=== PATIENT | female | born 1990 | race Caucasian/White ===

== ENCOUNTER 2023-06-21 08:22 | Emergency (ER) | payer MEDICAID, SELFPAY ==
--- NOTE | 2023-06-21 08:31 | XR_ITS ---
WS: [id number] Exam: XR foot LT min 3V* [id number] Date/Time of Exam: 06/21/2023 8:39 AM Reason For Exam: pain Findings: The foot was examined in multiple views and reveals no fractures or displacements of bone. No bony a nomalies are noted. The bony elements are in adequate alignment. The joint spaces are smooth and eq uidistant. IMPRESSION: Negative LEFT foot.
[2023-06-21 08:34] VITALS: BP 119/74; PULSE 97; RESP 16; TEMP 37.1; O2SAT 98; BMI 18.8
[2023-06-21 08:48] VITALS: BP 137/77; PULSE 99; O2SAT 98
--- NOTE | 2023-06-21 08:53 | ED_ITS ---
HPI - Extremity Problem General: Chief complaint: Extremity Injury, Lower Stated complaint: left foot pain Time Seen by Provider: 06/21/23 08:28 Source: patient Mode of arrival: ambulatory History of Present Illness: 33-year-old female presents to the [facility] ency room with complaint of left foot pain she was running and accidentally kicked a couch while racing to help her dog. Has pain with bruising over the dorsum of the foot at the base of the left third and fourth toes. No other injury. MD Complaint: extremity pain Onset (ago): hour(s) Pain Consistency: constant Location: left (foot) Quality: sharp Radiation: distal Relieving factors: nothing Exacerbating factors: range of motion and palpation Associated symptoms: Deny arthralgias, chest pain, fever(s), myalgias, rash or short of breath Review of Systems Const: Denies: fever(s) Card: Denies: chest pain Resp: Denies: dyspnea GI: Denies: abdominal pain : Denies: dysuria, urinary frequency or urinary urgency Musc: Reports: extremity pain (L foot); Denies: neck pain or back pain Skin/Breast: Denies: rash Physical Exam Const: COMMON NORMALS: no acute distress GENERAL APPEARANCE: cooperative and comfortable ORIENTATION/CONSCIOUSNESS: Yes awake, Yes oriented to person, Yes oriented to place and Yes oriented to time HENMT: COMMON NORMALS: normocephalic, atraumatic and hearing grossly normal bilaterally HEAD & SCALP: normocephalic and atraumatic Extremity: COMMON NORMALS: capillary refill normal, no clubbing, cyanosis or edema, no calf tenderness and no pedal edema OTHER: Ecchymosis of the dorsum of the foot overlying the left third and fourth MTP joints no deformity sensation normal good capillary refill distally. Neuro: SENSORIUM/ORIENTATION: Yes oriented to person, Yes oriented to place and Yes oriented to time Skin: COMMON NORMALS: no rashes or lesions noted GENERAL SKIN EXAM: no rashes or lesions noted Course Vital Signs: Vital signs: Vital Signs Temperature 98.7 F 06/21/23 08:34 Pulse Rate 99 06/21/23 08:48 Respiratory Rate 16 06/21/23 08:34 Blood Pressure 137/77 06/21/23 08:48 Pulse Oximetry 98 06/21/23 08:48 Oxygen Delivery Me thod Room Air 06/21/23 08:48 MDM - Extremity (Nontraumatic) Medical Decision Making X-rays negative for acute fracture. Ice rest. Can use diclofenac as needed. Medical Records I reviewed the patient's medical records. Lab Data I reviewed the patient's lab results. All radiology interpretation(s) finalized by discharge Discharge Plan Discharge Patient Disposition: Home Clinical Impression: Acute foot pain Condition: Stable Prescriptions: New diclofenac sodium 75 mg tablet,delayed release (DR/EC) 75 mg PO Q12H PRN (Reason: pain) Qty: 20 0RF Discharge Orders: Discharge ED (Routine); Ordered 06/21/23 Ordered By: Jason Burciaga Discharge Diet: Usual diet Discharge Activity: Increase activity as tolerated Patient Instructions: Opioid Safety, Pain Management Activity Restrictions/Additional Instructions: Thank you for choosing [facility] for your healthcare needs today. Please realize this is an emergency room and that we are providing you with a medical screening exam and this may not be complete and all inclusive of all the testing and or work up that you may need to determine your ailment or severity of your illness. It is very important that you follow up as instructed or that you return to the Emergency Department should you have concerns or if your condition changes or worsens in any way. You were seen today for foot pain. He has some bruising on the dorsum of the right foot there is no acute fractures on the x-ray. Use prescription medications given today follow-up as needed Coding Level of Care Code ED Drafting Layout Man for Dina Alfonso
== END 2023-06-21 09:17 | disposition home or self-care (01) ==
PROVIDERS: Emergency Provider Family Medicine
DX: M79.672 Pain in left foot (principal)
CPT/HCPCS: 73630; 99283

== ENCOUNTER 2023-11-09 05:20 | Outpatient (CLI) | payer MEDICAID, SELFPAY ==
--- NOTE | 2023-11-09 | USR_ITS ---
PROCEDURE INFORMATION: Exam: US After First Trimester, Transabdominal Exam date and time: 11/09/2023 1:19 PM Age: 33 years old Clinical indication: Screening exam; Routine US, uterus; Additional info: Normal in multigravida TECHNIQUE: Imaging protocol: Real-time transabdominal obstetrical ultrasound of the maternal pelvis and a second or third trimester with image documentation. COMPARISON: No relevant prior studies available. FINDINGS: There is a single living intrauterine in the cephalic presentation. The cervix is closed. Cervical length is 4.8 cm. The placenta is anterior and fundal without previa or abruption. heart rate is 144 bpm. measurements: BPD 4.63 cm-20 weeks 0 days HC 17.47 cm-20 weeks 0 days AC 14.38 cm-19 weeks 5 days FL 3.18 cm 19 weeks 6 days AUA 19 weeks 6 days JOHNY 03/29/2024 Estimated weight 315 g (11 oz). No abnormalities are noted on anatomic survey. US/US OB >= 14 weeks fetus [id number] IMPRESSION: 1. Single living intrauterine as above.
== END 2023-11-09 05:21 | disposition home or self-care (01) ==
LOC: RADOUTREAD 11-10 05:22
PROVIDERS: Visit Provider Family Medicine
DX: Z34.80 Encounter for supervision of other normal pregnancy, unspecified trimester (principal)

== ENCOUNTER 2024-04-01 19:13 | Inpatient (IN) | payer MEDICAID, SELFPAY ==
[2024-04-01] VITALS (35 sets, daily range): BP systolic 93–128; BP diastolic 51–77; PULSE 49–104; RESP 16–18; TEMP 36.8–37; BMI 25.7
[2024-04-01 09:58] LABS: Basophils # 0.1 10^3/uL (0.0-0.1); Basophils % 0.8 %; Eosinophils # 0.1 10^3/uL (0.0-0.8); Eosinophils % 1.1 %; Hematocrit 36.5 % (36-47); Lymphocytes # 2.4 10^3/uL (0.8-4.8); Lymphocytes % 22.6 %; Mean Corpuscular HGB Conc 33.4 g/dL (30-55); Mean Corpuscular Hemoglobin 30.9 pg (27-33); Mean Corpuscular Volume 92.4 fl (85-98); Monocytes # 0.7 10^3/uL (0.2-0.9); Monocytes % 6.6 %; Neutrophils # 7.14 10^3/uL (1.8-7.7); Neutrophils % 68.4 %; Nucleated Red Blood Cells % 0 %; Platelet Count 250 10^3/cmm (157-399); Red Blood Count 3.95 10^6/uL (3.85-5.65); Red Cell Distribution Width 13.1 % (12.1-15.1); White Blood Count 10.42 10^3/uL (3.29-11.43)
[2024-04-01 10:08] LABS: Amphetamines Screen Urine Negative (Negative); Barbiturates Screen Urine Negative (Negative); Benzodiazepines Screen Urine Negative (Negative); Cocaine Screen Urine Negative (Negative); Opiate Screen Urine Negative (Negative); PCP Screen Urine Negative (Negative); THC Screen Urine Positive (Negative)
[2024-04-01] MEDS: lactated ringers 1,000 ML 999 ML IV (17:12)
--- NOTE | 2024-04-01 18:15 | P.ANES_ITS ---
Anesthesia Procedures Procedure/Date: 04/01/24 Epidural: Time Out Performed: Yes Consents Signed: Procedure Consent Consent: requested by attending/covering physician and from patient Lumbar Level: L3-L4 Epidural position: sitting Epidural procedure: sterile prep of area, 1% lidocaine to numb the area, 18 g needle, negative for paresthesia p assed, neg for paresthesia, test dose given, 1.5% xylocaine 1:200k epi, 0.2% Ropivacaine bolus ml, placed PCEA, no systemic response, sterile dressing applied, L.U.D. no apparent complications and 0.2% Ropiavacaine @ mls/hr Additional Comments: Ropivacaine 0.2% at 10 mL/h
--- NOTE | 2024-04-01 18:26 | P.ANESASSM_ITS ---
Pre-Anesthetic Assessment Height/Weight: Height 5 ft 7 in Weight 164 lb Pulse Resp BP O2 Del Method 82 16 126/61 Room Air 04/01/24 18:23 04/01/24 08:49 04/01/24 18:23 04/01/24 07:08 Preop Diagnosis: In active labor Was Beta Chen taken within 24 hours: N/A Was Clonidine taken within 24 hours: N/A Social Tobacco and No alcohol Exam alert, oriented x 3, clear to auscultation bilaterally and regular rate & rhythm Airway Submandibular: within normal limits Cervical ROM: within normal limits Mallampati: Class II Dentition: full Anesthetic Plan ASA status: 2 Anesthesia: Regional (specify below) Other: G5, P4 in active labor requesting epidural Last cervical check patient was dilated to 5 cm Patient denies any issues during , only takes vitamin Labs reviewed and acceptable for neuraxial anesthesia Patient is noncompliant, has been stepping outside to smoke and refusing monitoring Plan for routine epidural placement Medications/Allergies Home Medications Medication Instructions Recorded Confirmed Last Taken Type diclofenac sodium 75 mg 75 mg PO Q12H PRN pain #20 tabs 06/21/23 Unknown Rx tablet,delayed release Allergies Allergy/AdvReac Type Severity Reaction Status Date / Time No Known Allergies Allergy Verified 06/21/23 08:38 Current Medications Generic Name Dose Route Start Last Admin Trade Name Freq PRN Reason Stop Dose Admin Lactated Ringer's 1,000 mls @ 999 mls/hr 04/01/24 17:01 04/01/24 17:12 Lactated Ringers IV 999 mls/hr .Q1H1M PRN Administration See label comments PFSH Anesthesia Female Reproductive History : 5 Data Anesthesia 04/01/24 09:49 Short CBC 04/01/24 Range/Units 09:49 WBC 10.42 (3.29-11.43) 10^3/uL Hgb 12.20 (11.27-16.99) g/dL Hct 36.5 (36-47) % MCV 92.4 (85-98) fl Plt Count 250 (157-399) 10^3/cmm Neut % (Auto) 68.4 % Neut # (Auto) 7.14 (1.8-7.7) 10^3/uL Blood Bank 04/01/24 09:49 Blood Type A Negative Rho(D) Type Rh negative Antibody Screen Negative Cardiac Studies: 2 No Data to Display
[2024-04-01] MEDS: oxytocin 30 UNIT/500 ML BAG IV (19:29)
[2024-04-01] MEDS: calcium carbonate 500 mg Chew Tablet 1000 MG PO (19:32)
[2024-04-01] MEDS: ROPivacaine syringe 100 MG/50 ML SYRINGE 10 MG EPIDURAL ×2 (19:46→21:59)
--- NOTE | 2024-04-01 22:05 | P.HPUD_ITS ---
Labor & Delivery H&P Update Date of Procedure: April 01, 2024 Date H&P Performed: 03/29/24 Changes to previous documentation: 34-year-old 6 para 4-0-1-4 at 40 weeks and 3 days patient presenting to the hospital with presumed spontaneous rupture membranes Admission Diagnosis: Spontaneous rupture membranes Preop diagnosis: In active labor Planned procedure: Vaginal delivery Other information: The patient is a 34-year-old female who presents to the hospital with spontaneous rupture membranes. Her is been relatively unremarkable. She has smoked tobacco and marijuana during her . Her blood type is a positive and she did decline a RhoGAM shot at 28 weeks. She has also been very specific about interventions, management, and medications that she would like during her labor process. We have had long discussions regarding the possibility of emergency situations where there is not time to adequately consent. I have also let her know that we will do our best to honor her wishes. She also understands that there are some times and will not be able to sergio quately consent her in emergency situations even if we are going against her expectations of labor. Related Problem List Diagnoses (1) 40 weeks gestation of : I anticipate routine labor and delivery. The patient has very specific desires regarding the medication she is okay with and not. We will do her best to let her drive things that she would like to have done. A&P Assessment and plan (1) 40 weeks gestation of : Status: Resolved
--- NOTE | 2024-04-01 23:25 | PM.DELIVERY ---
Delivery Note: Date of delivery: April 01, 2024 Pre-delivery diagnoses: 34-year-old 6 para 4-0-1-4 with an estimated gestational age of 40 weeks and 3 days who presented to the hospital with rupture membranes Post-delivery diagnoses: Status post spontaneous vaginal delivery Procedure: Spontaneous vaginal delivery Delivering Physician: Jamie Saha Estimated blood loss (mL): 75 Pre-Delivery Course: The patient presented to the hospital after having a gush of fluid and persistent trickling afterwards. In the hospital she had equivocal nitrazine. Due to her gestational age we recommended that she stay for presumed rupture membranes given her history. A forebag was noted and an amniotomy was performed she ultimately decided to have an epidural. Her labor was augmented with Pitocin. She progressed to complete without difficulty. Delivery: DELIVERY: The patient progressed to complete without difficulty. She delivered a female with a weight of 6 pounds 10 ounces with Apgars of 8, 9. The baby was delivered from the AJAY position and placed on the mother's abdomen. The cord was then clamped and cut after the cord stopped pulsating. There was no nuchal cord. There was no meconium. The placenta and 3 vessel cord were delivered intact shortly thereafter. The perineum and vaginal vault were carefully examined. No significant lacerations were noted. Both the mother and the baby were in stable condition. Post-Delivery Status: Good A&P Assessment and plan (1) Spontaneous vaginal delivery: I anticipate routine care. The patient is having some difficulty with childcare. As such she is debating whether she will stay tonight. We are going to see if we can modify hospital policy to allow her 10-year-old patient to stay with her so she can stay tonight in the hospital. Otherwise she may choose to go home AMA because of her childcare situation. (2) Marijuana use during : The patient was notified that DFS will be consulted due to her positive marijuana drug screen. Coding Level of Care Code Acute Code for Chg Fwd Diagnoses Spontaneous vaginal delivery O80 Marijuana use during O99.320; F12.90
[2024-04-02] VITALS (10 sets, daily range): BP systolic 89–117; BP diastolic 49–73; PULSE 54–115; RESP 14–18; TEMP 36.6–36.7; O2SAT 96–98
--- NOTE | 2024-04-02 01:19 | PC.NURSE ---
patient requested for IV to be removed at this time. Kameron SORIA educated patient on indications for IV and educated on risks with not having an IV after delivery. Patient states she would like RN to call physician for IV removal. Dr. Saha called at 0117 per patient request, physician states that IV may be removed. [phone] Jose Daniel Leggett RN in room for IV removal, patient states IV can be left in.
[2024-04-02] MEDS: HYDROcodone-acetaminophen 5-325 mg Tablet PO (07:28)
--- NOTE | 2024-04-02 08:09 | PM.OBGYDC ---
Discharge Providers [employer] Date of Admission: 04/01/24 19:13 Date of Discharge: 04/05/24 Attending Provider at Admission: Jamie Saha MD Attending Provider at Discharge: Jamie Saha MD Diagnoses at Discharge Discharge Diagnosis (1) 40 weeks gestation of : Status: Resolved Reason for Visit Reason for Visit: poss SROM Hospital Course Hospital Course The patient presented to the hospital after having spontaneous rupture membranes. After laboring for a while an epidural was placed. Her labor was augmented with Pitocin. She progressed to complete and had an unremarkable delivery of a healthy appearing infant. Her course was also relatively unremarkable. Her bleeding was within normal limits. Her pain was well-controlled. There were no concerns. Information Peripartum Data: Infant Delivery Method: Vaginal Physical Exam Narrative: The patient is alert. She appears comfortable. Her heart has a regular rate and rhythm with no murmurs appreciated. Lungs are clear to auscultation bilaterally. Her fundus is firm and below the umbilicus. Urinary Catheter Management: Chairez: Cath Placed During This Visit: yes, but has since been removed by the nurse Reason for Continuing Indwelling Catheter: Decision to DC Catheter Urinary Catheter Date of Insertion: 04/01/24 Urinary Catheter Time of Insertion: 19:45 Date Urinary Catheter Removed: 04/01/24 Time Urinary Catheter Discontinued: 22:50 Discharge Data Studies Completed and Pending Pending at discharge Category Date Time Status Complete Crossmatch Routine Lab 04/01/24 09:49 Results Maternal Hemorrhage Scrn Routine Lab 04/02/24 06:32 Ordered Hemagram Timed Lab 04/02/24 11:31 Uncollected Rho D Immune Globulin Routine Lab 04/01/24 09:49 Results Type and Screen Routine Lab 04/01/24 09:49 Results Laboratory Results WBC 10.42 10^3/uL (3.29-11.43) 04/01/24 09:49 RBC 3.95 10^6/uL (3.85-5.65) 04/01/24 09:49 Hgb 12.20 g/dL (11.27-16.99) 04/01/24 09:49 Hct 36.5 % (36-47) 04/01/24 09:49 MCV 92.4 fl (85-98) 04/01/24 09:49 MCH 30.9 pg (27-33) 04/01/24 09:49 MCHC 33.4 g/dL (30-55) 04/01/24 09:49 RDW 13.1 % (12.1-15.1) 04/01/24 09:49 Plt Count 250 10^3/cmm (157-399) 04/01/24 09:49 MPV 11.0 fL (7.4-10.4) H 04/01/24 09:49 Neut % (Auto) 68.4 % 04/01/24 09:49 Lymph % (Auto) 22.6 % 04/01/24 09:49 [place] % (Auto) 6.6 % 04/01/24 09:49 Eos % (Auto) 1.1 % 04/01/24 09:49 Baso % (Auto) 0.8 % 04/01/24 09:49 Neut # (Auto) 7.14 10^3/uL (1.8-7.7) 04/01/24 09:49 Lymph # (Auto) 2.4 10^3/uL (0.8-4.8) 04/01/24 09:49 [place] # (Auto) 0.7 10^3/uL (0.2-0.9) 04/01/24 09:49 Eos # (Auto) 0.1 10^3/uL (0.0-0.8) 04/01/24 09:49 Baso # (Auto) 0.1 10^3/uL (0.0-0.1) 04/01/24 09:49 Nucleated RBC % (auto) 0 % 04/01/24 09:49 Nucleated RBCs # 0.0 /100WBC 04/01/24 09:49 Urine Opiates Screen Negative ng/mL (Negative) 04/01/24 09:20 Ur Barbiturates Screen Negative ng/mL (Negative) 04/01/24 09:20 Ur Phencyclidine Scrn Negative ng/mL (Negative) 04/01/24 09:20 Ur Amphetamines Screen Negative ng/mL (Negative) 04/01/24 09:20 U Benzodiazepines Scrn Negative ng/mL (Negative) 04/01/24 09:20 Urine Cocaine Screen Negative ng/mL (Negative) 04/01/24 09:20 U Marijuana (THC) Screen Positive ng/mL (Negative) H 04/01/24 09:20 Blood Type A Negative 04/01/24 09:49 Rho(D) Type Rh negative 04/01/24 09:49 Antibody Screen Negative 04/01/24 09:49 Vitals Last Vital Signs Temp 97.9 F 04/02/24 02:25 Pulse 55 L 04/02/24 04:55 Resp 18 04/02/24 02:25 BP 89/49 04/02/24 04:55 Pulse Ox 98 04/02/24 04:55 O2 Del Method Room Air 04/02/24 04:55 Results Labs OB ([facility]): Blood Type A Negative 04/01/24 Antibody Screen Negative 04/01/24 Hct 35.2 % (36-47) L 04/02/24 Hgb 11.80 g/dL (11.27-16.99) 04/02/24 Rho(D) Type Rh negative 04/01/24 Plt Count 223 10^3/cmm (157-399) 04/02/24 Urine Opiates Screen Negative ng/mL (Negative) 04/01/24 Ur Barbiturates Screen Negative ng/mL (Negative) 04/01/24 Ur Phencyclidine Scrn Negative ng/mL (Negative) 04/01/24 Ur Amphetamines Screen Negative ng/mL (Negative) 04/01/24 U Benzodiazepines Scrn Negative ng/mL (Negative) 04/01/24 Urine Cocaine Screen Negative ng/mL (Negative) 04/01/24 U Marijuana (THC) Screen Positive ng/mL (Negative) H 04/01/24 Discharge Plan Discharge Patient Disposition: Home Condition: Stable Prescriptions: New ibuprofen 800 mg Tablet 800 mg PO TID Qty: 45 0RF Discontinued diclofenac sodium 75 mg tablet,delayed release (DR/EC) 75 mg PO Q12H PRN (Reason: pain) Qty: 20 0RF Discharge Orders: Discharge Order (Routine); Ordered 04/02/24 Ordered By: Jamie Saha Referrals: Jamie Saha MD [Physician] - 05/07/24 3:40 pm (* Your 6 week appointment is with Dr. Saha on 05/07/2023 3:40pm ) Discharge Diet: Usual diet Discharge Activity: Limit activity as instructed Patient Instructions: Depression (DC), Bleeding (DC), Preeclampsia and Eclampsia After Delivery (GEN), Hemorrhage (DC), OB Discharge Report, OB Anesthesia Instructions, OB Food/Drug Interaction Guide, Opioid Safety, OB Home Care, OB Proud Parent Packet Discharge Attestations [employer] Time Spent in Discharge Care*: less than 30 min Coding Level of Care Code Acute Code for Chg Fwd Diagnoses 40 weeks gestation of Z3A.40
[2024-04-02] MEDS: PRENATAL VIT NO.130/IRON/FOLIC 1 EACH TABLET PO (08:47)
[2024-04-02] MEDS: docusate sodium 100 mg Capsule PO (08:47)
[2024-04-02] MEDS: ibuprofen 800 mg tablet PO (08:47)
[2024-04-02 10:26] LABS: Hematocrit 35.2 % (36-47); Mean Corpuscular HGB Conc 33.5 g/dL (30-55); Mean Corpuscular Hemoglobin 30.7 pg (27-33); Mean Corpuscular Volume 91.7 fl (85-98); Platelet Count 223 10^3/cmm (157-399); Red Blood Count 3.84 10^6/uL (3.85-5.65); White Blood Count 12.93 10^3/uL (3.29-11.43)
[2024-04-02] MEDS: lanolin oint 7 gm 1 APPLIC TOPICAL (11:14)
--- NOTE | 2024-04-02 13:46 | PC.NURSE ---
IV taken out by Ladi Tang RN @ [phone]. Catheter intact.
== END 2024-04-02 13:35 | disposition home or self-care (01) | DRG 806 ==
LOC: OPOB 19:13 → OBGYN 19:13
PROVIDERS: Admitting Provider Family Medicine; Visit Provider Family Medicine
DX: O48.0 Post-term pregnancy (principal); O99.324 Drug use complicating childbirth; Z37.0 Single live birth; Z3A.40 40 weeks gestation of pregnancy; O99.334 Smoking (tobacco) complicating childbirth; F17.210 Nicotine dependence, cigarettes, uncomplicated; F12.90 Cannabis use, unspecified, uncomplicated
CPT/HCPCS: 36415; 36430; 51702; 59409; 80306; 83986; 85025; 85027; 85460; 86850; 86900; 90384; 90471; J2590; J2795; J7120

== ENCOUNTER 2024-10-09 15:55 | Outpatient (CLI) | payer MEDICAID, SELFPAY ==
--- NOTE | 2024-10-09 16:09 | XR_ITS ---
WS: [id number] Cervical spine, 5 views including both obliques, 10/09/2024 Clinical Data: CERVICAL PAIN Comparison: None. Findings: No compression fractures are seen. There is disc narrowing at C5-C6 and C6-C7 with minimal osteoarthritis at these levels. The oblique images show no foraminal narrowing. There is no prevertebral soft tissue swelling. The odontoid is unremarkable. The soft tissues of the neck and the lung apices are normal. XR/XR cervical spine 4-5V [id number] Impression: 1. 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 2. No foraminal narrowing on oblique images.
--- NOTE | 2024-10-09 16:10 | XR_ITS ---
WS: [id number] Right hip, 2 views, AP pelvis, 10/09/2024 Clinical Data: PAIN OF RIGHT HIP Comparison: None. Findings: No fractures or dislocations are seen. The right hip shows no erosion, sclerosis, narrowing, fragmentation of the right femoral head or loss of the normal spherical outline. Left hip is normal. The soft tissues are not remarkable. The adjacent pelvis is normal. XR/XR hip RT 2-3V wo/w pel* [id number] Impression: Negative pelvis and right hip.
--- NOTE | 2024-10-09 16:11 | XR_ITS ---
WS: [id number] Right wrist, 3 views, 10/09/2024 Clinical Data: CHRONIC PAIN OF RIGHT WRIST Comparison: None. Findings: No fractures or dislocations are seen. The carpal bones are intact. There is no soft tissue swelling. The distal radius and ulna are not remarkable. XR/XR wrist RT min 3V* [id number] Impression: Negative right wrist.
== END 2024-10-09 15:56 | disposition home or self-care (01) ==
LOC: RAD 16:05
DX: M47.22 Other spondylosis with radiculopathy, cervical region (principal); M48.02 Spinal stenosis, cervical region; M25.551 Pain in right hip; M25.531 Pain in right wrist; G89.29 Other chronic pain
CPT/HCPCS: 72050; 73110; 73502

== ENCOUNTER → 2024-10-23 13:50 | Outpatient (BNVA) | payer MEDICAID, SELFPAY | PROVIDERS: Visit Provider Orthopaedic Surgery | DX: M54.2 Cervicalgia (principal); M48.02 Spinal stenosis, cervical region | CPT/HCPCS: 72050 ==

== ENCOUNTER 2024-11-01 12:05 | Outpatient (CLI) | payer MEDICAID, SELFPAY ==
--- NOTE | 2024-11-01 12:15 | MR_ITS ---
WS: [id number] MRI CERVICAL SPINE NONCONTRAST TECHNIQUE: Sagittal T1, T2 and STIR imaging. Axial T2, gradient, and fiesta imaging. CLINICAL INFORMATION: neck pain COMPARISON: None. FINDINGS: Mild Chiari I malformation. Reversal of the normal cervical lordosis. Cord signal is normal. No high-grade central canal narrowing. C2-C3: Normal. C3-C4: Mild facet arthropathy. C4-C5: Mild disc bulging. Mild facet arthropathy. Spinal canal and foramen are patent. C5-C6: Tiny RIGHT paracentral protrusion. Slight contact of the cervical cord. Spinal canal and foramen are patent. Mild facet arthropathy. C6-C7: Disc osteophyte complex eccentric to the RIGHT. Mild RIGHT bony foraminal narrowing. Spinal canal and LEFT foramen are patent. Mild facet arthropathy. C7-T1: Normal. Visualized brain stem structures: Normal. Prevertebral soft tissues: Normal. MR/MR cervical spin wo con* [id number] IMPRESSION: 1. Reversal of the normal cervical lordosis. Cord signal is normal. 2. Mild Chiari I malformation. 3. Shallow RIGHT paracentral disc osteophyte protrusion C5-C6 with slight inde ntation on the cervical cord and mild central canal stenosis. 4. Mild RIGHT C6-7 bony foraminal narrowing.
== END 2024-11-01 12:06 | disposition home or self-care (01) ==
LOC: RAD 12:05
PROVIDERS: Visit Provider Orthopaedic Surgery
DX: M47.812 Spondylosis without myelopathy or radiculopathy, cervical region (principal); G93.5 Compression of brain; M25.78 Osteophyte, vertebrae; M48.02 Spinal stenosis, cervical region
CPT/HCPCS: 72141

== ENCOUNTER → 2024-11-05 15:09 | Outpatient (BNVA) | payer MEDICAID, SELFPAY | PROVIDERS: Visit Provider Internal Medicine Rheumatology | DX: M25.50 Pain in unspecified joint (principal) | CPT/HCPCS: 36415; 80076; 82306; 82565; 85025; 85651; 86140; 86480; 86704; 86803; 87340 ==

== ENCOUNTER 2025-04-04 13:29 | Outpatient (RCR) | payer MEDICAID, SELFPAY | END 2025-04-24 23:59 | disposition home or self-care (01) | LOC: SPT 13:29 | PROVIDERS: Visit Provider Orthopaedic Surgery | DX: M54.2 Cervicalgia (principal); G89.29 Other chronic pain | CPT/HCPCS: 97110; 97161 ==